=== PATIENT | male | born 1990 | race Caucasian/White ===

== ENCOUNTER 2024-01-03 09:48 | Outpatient (CLI) | payer OTHER ==
--- NOTE | 2024-01-03 10:57 | Sleep Patient Instructions ---
Sleep Center Visit Summary - Patient Visit Information Reason for Visit: Initial consult for evaluation of sleep disordered breathing and other sleep issues. - Patient Instructions Instructions Attached: Sleep Study Additional Instructions: You will be completing a sleep study, either an in-lab polysomnography (PSG) or home sleep study (HST). You will follow-up in the sleep care office after the sleep study is completed to hear the results and talk about therapy, if needed. You will be called by our office staff to schedule this appointment, but you may contact us with any questions. - Clinic Information Contact: [facility] [address] [place] [address] [email or web address] T: [phone]
--- NOTE | 2024-01-03 11:01 | SLEEP CARE CONSULTATION ---
Information from patient questionnaire entered by Jaswant Peña. I have reviewed and concur with the information entered by Jaswant Peña. This document represents the service I personally performed and the decisions made by me, Hanna Willoughby ARNP. History of Present Illness Service Date and Time: 01/03/2024947 Reason for Visit: New patient Chief Complaint: reports: Fatigue Date of Onset: 5 years Usual bedtime: 1200 PM Time it takes to fall asleep: 30-45 min Snores at night: Yes Observed to quit breathing while asleep: No Sleeps alone due to snoring: No Number of times waking at night: 4 Reasons for waking at night: reports: Bathroom, Other (Unknown reason). denies: Choking, Snoring, Gasping for air Toss, Turn, or Twitch while sleeping: Yes Recalls having dreams: Yes Usually gets out of bed at: 7 AM Feels refreshed in the morning: No Morning headache: No Sleepy or fatigued during the day: Yes Ever fallen asleep while driving: No Takes day naps: Yes (not much with young kids; daily before kids) Dreams during day naps: No Prior sleep studies: No Additional HPI information: I had the pleasure of seeing LIZETH CONSTANTINO today regarding the possibility of him having a sleep disorder. His current complaint is fatigue. He says his PCP referred him because of high blood pressure for the last 3 years. He is currently on second shift from 2 PM to 11 PM. He normally goes to bed by midnight and gets up at about 7 AM. He says he does snore but his still sleeps in the same room. She will elbow him to turn over to reduce snoring. He states he does not normally wake up feeling refreshed and is tired throughout the day. He states he would like to take a nap, but because of having young children at home including a new baby, he does not get naps. He has gained about 30 pounds in last 5 years since he and started having children. 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 Patient is and lives in [place]. Have you smoked in the past 12 months: No Alcohol use: Yes Alcohol amount and frequency: 3, 2 times a week Caffeine use: Yes Caffeine amount and frequency: 3 cups, 5 days a week Family History Family history of sleep disordered breathing: Yes Family Hx Sleep Apnea: Father: Snoring Allergies and Home Medications Known drug allergies: No Drug allergies reviewed: Yes Home medication list reviewed: Yes (blood pressure med (possible Metoprolol) prakash bring in next time) Allergy and home medication list: Allergies No Known Drug Allergies Allergy (Verified 01/03/24 10:50) Home Medications Omeprazole See Rx Instructions .ROUTE .COMPLEX 01/03/24 [History] Review of Systems Weight gain over past 5 years: 30 Cardiovascular: reports: high blood pressure Respiratory: denies: shortness of breath Gastrointestinal: reports: other (EOE) Neurological: denies: headaches Psychiatric: denies: anxiety, depression Ear/Nose/Throat: reports: tonsillectomy, wisdom teeth removed (one left) Physical Exam Vital signs obtained and entered by: Hanan Lou NP Blood Pressure: 137/85 Cuff size: wrist (right) Heart Rate: 63 O2 Saturation: 96 Height: 5 ft 8 in Weight: 258 lb Body Mass Index: 39.2 BMI Classification: Obese Neck circumference: 16 Nostrils: patent to airflow Mouth and throat: normal Soft palate: long Hard palate: normal Uvula: normal Uvula visualization: 100% Mallampati Class I Tongue: enlarged in size with teeth cordoba on lateral edges Tonsils: absent bilaterally Neck: normal w/o lymphadenopathy or thyromegaly Heart: regular rate and rhythm Lungs: clear bilaterally Impression and Plan 1. Suspected Obstructive Sleep Apnea-Hypopnea Syndrome, as suggested by a history of loud and irregular snoring, unrefreshed sleep, cognitive impairment, and fatigue. Narrow oropharynx and obesity are common predisposing factors for obstructive sleep apnea-hypopnea syndrome. I recommend proceeding to polysomnography to confirm the diagnosis and to assess severity. If the patient has significant sleep disordered breathing, a manual CPAP titration study will also be performed to find the optimal treatment pressure. I informed the patient of what the sleep studies involve and after some discussion, obtained agreement to proceed. The pathophysiology of obstructive sleep apnea-hypopnea syndrome was discussed with the patient and health risks of cardiovascular and cerebrovascular disease if not treated. Risks of drowsy driving discussed in detail and patient advised to avoid long distance driving and to breast puller at the first sign of drowsiness. Patient agreed to plan. * Schedule polysomnography * Avoid long distance driving or driving when feeling sleepy. * Avoid alcohol, sedative and muscle relaxant around bedtime. * Attempt to lose weight. * Review instructions provided by trained office staff on how to prepare for the sleep study. * Return for follow-up after sleep study completed. Counseling Topics: Weight loss health impact Follow up with Sleep Care in: other (for results of sleep study) Plan: PSG Visit Type: In Office Time Spent with Patient (minutes): 30 Provider Statement: I spent 100% of the Face to Face Visit with the patient with greater than 50% spent counseling the patient and coordination of care.
[2024-01-03 11:04] VITALS: BP 137/85; O2SAT 96
== END 2024-01-03 09:49 | disposition home or self-care (01) ==
LOC: SC 09:48
PROVIDERS: ATTEND Nurse Practitioner Family
DX: R06.83 Snoring (principal); G47.8 Other sleep disorders; R41.89 Other symptoms and signs involving cognitive functions and awareness; R53.83 Other fatigue; E66.9 Obesity, unspecified; Z68.39 Body mass index [BMI] 39.0-39.9, adult; I10 Essential (primary) hypertension
CPT/HCPCS: 99203; 99212